=== PATIENT | male | born 1960 | race Two or more races ===

== ENCOUNTER 2017-02-03 15:00 | Inpatient (IN) | payer BC, MEDICAID ==
[~2017-02-03] VITALS: Ht 165.1 cm; Wt 111.0 kg
--- NOTE | ~2017-02-03 | ENPV ---
Carotid Duplex Study Demographics Patient Name FREDDY RAMOS Date of Study 02/03/2017 Patient Number [id number] Gender Male Date of 1960 Age 56 Visit Number [id number] Height Accession Number [id number] Weight Room Number G6338 BSA BMI Referring Yoni Jacobsen MD Physician DO Physician Physician Ordering Physician Yoni Ray DO Hospital Secretary Courtroom Deputy Or Calendar Clerk Lisbet Vargas T Conclusions Summary The right internal carotid artery has mild, 1-39%, plaque and stenosis. The right vertebral artery is present with antegrade flow. The left internal carotid artery has moderate, 40-59%, plaque and stenosis. The left vertebral artery is present with antegrade flow. Procedure Type of Study: Cerebral:Carotid, Carotid Doppler Bilateral. Indications for Study:Pre-Op CABG. Appropriate Use Criteria:9 Patient Status:Routine. Study Location:Inpatient Portable. Technical Quality:Adequate visualization. Velocities are measured in cm/s ; Diameters are measured in cm Carotid Right Measurements Carotid Left Measurements + +--------+--------+ + + + +--------+ --------+ + + !Location !PSV !EDV !Angle !%Stenosis ! !Location !PSV ! EDV !Angle !%Stenosis ! + +--------+--------+ + + + +--------+ --------+ + + !Prox CCA !97 !18 !60 ! ! !Prox CCA !115 ! 25 !58 ! ! + +--------+--------+ + + + +--------+ --------+ + + !Dist CCA !74 !18 !60 ! ! !Dist CCA !109 ! 32 !58 ! ! + +--------+--------+ + + + +--------+ --------+ + + !Prox ICA !71 !18 !58 ! ! !Prox ICA !80 ! 22 !60 ! ! + +--------+--------+ + + + +--------+ --------+ + + !Dist ICA !51 !16 !58 ! ! !Dist ICA !114 ! 39 !60 ! ! + +--------+--------+ + + + +--------+ --------+ + + !Prox ECA !101 ! !60 ! ! !Prox ECA !106 ! !34 ! ! + +--------+--------+ + + + +--------+ --------+ + + !Vertebral !52 ! !60 ! ! !Vertebral !36 ! !58 ! ! + +--------+--------+ + + + +--------+ --------+ + + !Subclavian !158 ! ! ! ! !Subclavian !151 ! ! ! ! + +--------+--------+ + + + +--------+ --------+ + + - There is antegrade vertebral flow noted on the right side. - There is antegrade verte bral flow noted on the left side. - Add'l Measurements:ICAPSV/CCAPSV 0.73.ICAEDV/CCAEDV 1.05. - Add'l Measurements:ICAPS V/CCAPSV 0.99.ICAEDV/CCAEDV 1.56. Signature dtt: TY CARDENAS: 02/03/171939 Physician Self Edit
--- NOTE | ~2017-02-03 | ENPV ---
Vascular Lower Extremity Vein Mapping Procedure Demographics Patient Name FREDDY RAMOS Date of Study 02/03/2017 Patient Number [id number] Gender Male Date of 1960 Age 56 Visit Number [id number] Height Accession Number [id number] Weight Room Number G6338 BSA BMI Referring Yoni Jacobsen MD Physician DO Physician Physician Ordering Physician Yoni Ray DO Senior Actuarial Analyst Nurse Tech Lisbet Vargas RVT Conclusions Summary Both GSV's appear suitable for harvest. Left GSV at mid calf appears to be thickened or not collapse completely. Procedure Type of Study: Veins:Lower Extremity Vein Mapping, Vein Mapping SC. Indications for Study:Pre-op CABG. Appropriate Use Criteria:9 Patient Status:Routine. Study Location:Inpatient Portable. Technical Quality:Adequate visualization. Velocities are measured in cm/s ; Diameters are measured in cm + ++--------++--------+ !Superficial - Great Saphenous Vein !!Right !!Left ! + ++--------++--------+ !Location !!Diameter!!Diameter! + ++--------++--------+ !Sapheno Femoral Junction !!0.49 !!0.44 ! + ++--------++--------+ !GSV High Thigh !!0.4 !!0.43 ! + ++--------++--------+ !GSV Mid Thigh !!0.33 !!0.29 ! + ++--------++--------+ !GSV Low Thigh !!0.29 !!0.34 ! + ++--------++--------+ !GSV Knee !!0.27 !!0.27 ! + ++--------++--------+ !GSV High Calf !!0.22 !!0.22 ! + ++--------++--------+ !GSV Mid Calf !!0.33 !!0.22 ! + ++--------++--------+ !GSV Low Calf !!0.22 !!0.25 ! + ++--------++--------+ Signature dtt: TY CARDENAS dtd: 02/03/172001 Physician Self Edit
--- NOTE | ~2017-02-03 | OR ---
PATIENT'S NAME: FREDDY AMES [facility] AGE: 56 Y [address] ROOM: [address] [place], [place] [address] LOCATION: GPCU ADMIT DATE: 02/03/2017 OR/Procedure Report DISCHARGE DATE: 02/10/2017 FAMILY PHYSICIAN: Physician, Unknown ATTENDING PHYSICIAN: Martinez Vallejo SURGEON: Martinez Vallejo DO TELEPHONE SERVICES SALES REPRESENTATIVE: DATE OF PROCEDURE: 02/04/2017 PREOPERATIVE DIAGNOSIS: Multivessel coronary artery disease. SECONDARY DIAGNOSES: Include: 1. Hypertension. 2. Dyslipidemia. 3. Type 2 diabetes. 4. Gastroesophageal reflux disease. 5. Morbid obesity. 6. Depression. POSTOPERATIVE DIAGNOSES: Include: 1. Hypertension. 2. Dyslipidemia. 3. Type 2 diabetes. 4. Gastroesophageal reflux disease. 5. Morbid obesity. 6. Depression. PROCEDURE: Coronary artery bypass grafting x5 with left internal mammary artery bypass to the LAD, reverse saphenous vein graft to the diagonal, reverse saphenous vein graft to the obtuse marginal, reverse saphenous vein graft to the ramus intermedius, reverse saphenous vein graft to the posterior descending artery. REFERRING PHYSICIAN: Dr. Wong. BRIEF HISTORY: Mr. Ames is a 56-year-old male, who was transferred from [place] for revascularization. He has been brought to the operative suite today after informed consent was obtained. His preoperative catheterization had shown proximal LAD disease, proximal circumflex disease, RCA disease, and ramus intermedius disease and he also had an FFR positive LAD measurement. Given all these, he was brought to the operative suite for revascularization x5. His heart was grossly enlarged with dense epicardial fat with no visible vessels. DESCRIPTION OF PROCEDURE: He was sterilely prepped and draped in usual PATIENT'S NAME: FREDDY AMES [facility] AGE: 56 Y [address] ROOM: [address] [place], [place] [address] LOCATION: GPCU ADMIT DATE: 02/03/2017 OR/Procedure Report DISCHARGE DATE: 02/10/2017 FAMILY PHYSICIAN: Physician, Unknown ATTENDING PHYSICIAN: Martinez Vallejo fashion. A sternal incision was made and the sternum was divided in the midline. Concurrently to this, saphenous vein was harvested endoscopically from the lower extremities. The sternal and marrow edges were made hemostatic with electrocautery and mammary retractor was placed. Left internal mammary artery was identified and harvested in standard fashion with surgical clips and electrocautery. Prior to its division, the patient was fully heparinized. The mammary was divided and prepared for bypass. Mammary retractor was removed. Sternal retractor was placed. Pericardium was opened and pericardial well was created. Cannulation sutures placed in ascending aorta and right atrium for bypass cardioplegia cannulas. The patient was cannulated and connected to the bypass pump without difficulty. Posterior descending artery was identified and opened not to distal from the bifurcation and the vein was anastomosed to this with 7-0 Prolene. It was sized appropriately and connected to the cardioplegia system. Another 500 mL of vein graft and retrograde cardioplegia was given. We then performed distal anastomosis to the obtuse marginal, the ramus intermedius, and the diagonal. Once this was completed, the left internal mammary artery was anastomosed to the left anterior descending artery again in end-to-side fashion with 7-0 Prolene. The mammary bulldogs removed and intact anastomosis was complete. Given his dense layers of epicardial fat, there was some minor oozing from the fat sites. When the crossclamp was removed, these were oversewn with 7-0 Prolene. The cross-clamp was removed and proximal's were formed. This was done with 4-0 punch and 6-0 Prolene. We performed two of the vein graft anastomosis under partial occlusion clamping and remainder were done with 4.3 heartstring and 6- 0 Prolene. Grafts were all de-aired. Distal flow was given. Distal sites were hemostatic. Proximal sites were hemostatic. Two atrial and one ventricular temporary pacemaking wires were placed. Atrial pacing at 80 was initiated for sinus bradycardia and we weaned from bypass without difficulty. The retrograde and venous cannula were removed. Appropriate volume returned from the pump to the patient. The ascending aortic cannula was now removed. Protamine was given. Copious amounts of antibiotic-infused saline was used to irrigate the sternum and mediastinum. Three chest tubes were placed, one left pleural, one posterior pericardial, one anterior mediastinum, and the sternum was approximated with four ZipFix cables. Soft tissues again closed in a layered fashion with 0 Vicryl, 2-0 Vicryl, and 4-0 Monocryl. Prevena dressing was applied and the patient was transferred to the intensive care unit in stable condition. All sponge, instrument, and needle counts were correct. DO STANLEY FLEMING/mindy PATIENT'S NAME: FREDDY AMES [facility] AGE: 56 Y [address] ROOM: [place] [address] [facility] AD[facility] DATE: 02/03/2017 OR/Procedure Report DISCHARGE DATE: 02/10/2017 FAMILY PHYSICIAN: Physician, Unknown ATTENDING PHYSICIAN: Martinez Vallejo /[id number] d: 02/10/172049 t: 02/11/17 0841, OPERATIVE SUMMARY
--- NOTE | ~2017-02-03 | HP ---
PATIENT'S NAME: FREDDY RAMOS [facility] AGE: 56 Y [address] ROOM: [place] [address] [facility] AD[facility] DATE: 02/03/2017 History & Physical DISCHARGE DATE: FAMILY PHYSICIAN: PHYSICIAN, UNKNOWN ATTENDING PHYSICIAN: Julia Babb DATE OF SERVICE: 02/03/2017 CHIEF COMPLAINT: Severe multivessel coronary artery disease. HISTORY OF PRESENT ILLNESS: The patient is a 56-year-old male who was transferred here to [facility] from [place] whereby he was admitted to [place] on Tuesday with complaints of chest pain with associated shortness of breath and radiation to the jaw. Apparently, the chest pain started on Tuesday and he delayed his presentation for approximately a day after the pain began to worsen. Prior to this, the patient has had 1 additional episode of chest pain that was somewhat similar and this was back in October 2016. Upon his arrival to the emergency department in [place], the patient was treated with both GI medications as well as aspirin and nitroglycerin. Shortly thereafter, his pain subsided. He was admitted and underwent a cardiology workup. He does have a history of hypertension, dyslipidemia, and diabetes mellitus type 2. The patient had an echocardiogram with findings of a normal EF in the 60% range and no valvular abnormalities. On February 01, 2017, he underwent cardiac catheterization with findings of no left main disease, his 1st diagonal was noted to be at 90% occlusion, his proximal LAD at 50% occlusion, the circumflex at 70%, the proximal RCA a 90% occlusion, as well as a mid RCA at 100%, the ramus is noted to be at 70% occlusion. The patient was recommended to undergo surgical revascularization. Initially, he had refused treatment, but then he did consent to transfer to [place] for surgery under the care of Dr. Babb. Dr. Wong did transfer the patient today and he arrived in stable condition with no complaints of chest pain or shortness of breath. PAST MEDICAL HISTORY: Illnesses: Hypertension, dyslipidemia, diabetes mellitus type 2, GERD, obesity, and depression. Surgeries/Procedures: None. ALLERGIES: PENICILLIN. PATIENT'S NAME: FREDDY RAMOS [facility] AGE: 56 Y [address] ROOM: [place] [address] LOCATION: GPCU ADMIT DATE: 02/03/2017 History & Physical DISCHARGE DATE: FAMILY PHYSICIAN: PHYSICIAN, UNKNOWN ATTENDING PHYSICIAN: Julia Babb SOCIAL HISTORY: The patient is . He and his live in [place]. 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 There is no use of alcohol or history of smoking. FAMILY HISTORY: His mother had history of diabetes. His father's history is unknown. As far as we can tell, there is no history of coronary artery disease in the immediate family. HOME MEDICATIONS: 1. Lipitor 40 mg daily. 2. Celebrex 200-400 mg a day p.r.n. pain. 3. Amaryl 4 mg daily. 4. Metformin 500 mg once a day; however, the prescribed instructions are for 1000 mg b.i.d. 5. Tramadol 50-100 mg daily p.r.n. pain. 6. Diovan 160 mg daily. SYSTEM REVIEW: The [employer] Basket Assembler System was used to obtain information. The patient is non-Bahraini speaking, Occitan only, he is severely hard of hearing. Pertinent positives are noted in the HPI. PHYSICAL EXAMINATION: VITAL SIGNS: Blood pressure 139/81, pulse is 85, respirations 24, temperature 99.3, and O2 saturations 95% on room air. Height is 165.1 cm. Weight is 104.4 kg. GENERAL: The patient is pleasant. In no acute distress. He appears his stated age. HEENT: Normocephalic with EOMIs intact. Conjunctivae clear. LUNGS: Clear to auscultation to the anterior. CARDIOVASCULAR: Regular rate and rhythm. CHEST: He does have a few follicular spots on the right upper chest, nothing infectious in nature. ABDOMEN: Obese, soft, nontender by 4 quadrants with positive bowel sounds throughout. MUSCULOSKELETAL: Good range of motion to bilateral upper and lower extremities. NEUROLOGIC: Alert and oriented with language barrier and significantly hard of hearing. LABORATORY AND TEST RESULTS: Creatinine is 0.9. Cardiac catheterization and echo as per HPI. PATIENT'S NAME: FREDDY RAMOS [facility] AGE: 56 Y [address] [place]OM: [facility] [address] [place], [place] [address] LOCATION: GPCU ADMIT DATE: 02/03/2017 History & Physical DISCHARGE DATE: FAMILY PHYSICIAN: PHYSICIAN, UNKNOWN ATTENDING PHYSICIAN: Julia Babb IMPRESSION AND PLAN: Dr. Babb spoke to the patient and his via the [employer] System with regard to surgical revascularization. Per the review of the catheterization studies, the patient will need 5-vessel bypass, this is consisting of an obtuse marginal, left anterior descending artery, ramus, diagonal, and posterior descending artery. Risks and benefits were discussed. Discussion of the risks includes, but were not limited to, bleeding, requiring transfusion, return to the operative suite, myocardial infarction, cerebrovascular accident, renal and/or pulmonary failure. Also discussed were arrhythmia and infection as well as postoperative mortality. The patient does consent to proceed with surgery. Length of stay and restrictions were discussed. Surgery will be first thing in the morning with the patient leaving the room at approximately 5:30 a.m. The patient did have the opportunity to ask questions, as did his . The patient's questions were asked and answered to their satisfaction. We will plan for coronary artery bypass grafting in the morning. SOPHIA CAPUTO APRN FOR JULIA BABB, DLQ/modl /[id number] D: 826 T: HISTORY & PHYSICAL
--- NOTE | ~2017-02-03 | OR ---
PATIENT'S NAME: ADIEL AMES [facility] AGE: 56 Y [address] ROOM: [address] [place], [place] [address] LOCATION: GPCU ADMIT DATE: 02/03/2017 OR/Procedure Report DISCHARGE DATE: FAMILY PHYSICIAN: PHYSICIAN, UNKNOWN ATTENDING PHYSICIAN: Martinez Vallejo SURGEON: David Acosta MD BLANKET INSPECTOR: DATE OF PROCEDURE: 02/04/2017 PROCEDURE PERFORMED: The following lines were placed during the patient's coronary artery bypass grafting. INDICATIONS FOR PROCEDURE: Adiel Ames is a 56-year-old, gentleman who was referred to us for a three-vessel heart disease. His past medical history is significant for type 2 diabetes, hypertension, and obesity, would add sleep apnea to that as well. However, I do not believe it has been diagnosed officially. Detailed discussion of the risks and benefits was undertaken last night by Dr. Thompson via the conference interpreter as the patient speaks no [place] Citizen. I visited with him using the [employer] interpreting system this morning and explained him what the plan was. He agreed with the plan as stated. DESCRIPTION OF PROCEDURE: We proceeded to OR #4 where he underwent uneventful induction of general anesthesia and intubation with the airway controlled. Procedure #[address] in the OR. Procedure #1 was the placement of arterial line which I will narrate now. The patient's right arm was selected because the pulse was significantly better than the left. He had already been catheterized previously so I selected a spot approximately 5 cm proximal to the cath point. It should also be noted it has been several days since he was cathed. I prepped the area with chlorhexidine topicalized with 1% lidocaine. I inserted a 20-gauge Arrow arterial line kit through the numbed area contacting bright red arterial blood on the first pass. The wire threaded without difficulty and the catheter was then threaded off the wire into the artery. Good arterial waveform was noted on transduction. The entire assembly was covered with Tegaderm and affixed to the patient's wrist. Procedure #2; placement of central line. With the patient in the operating room, and the airway controlled, the patient was placed in Trendelenburg position and the path of the internal jugular vein was marked on the neck. I washed hands with chlorhexidine and gloved and gowned, while his neck was prepped and maximal sterile barrier was placed. An 18-gauge needle was then inserted through the marked area. Contacting dark venous blood on the first pass. The wire threaded without difficulty or ectopy. A small skin riley was PATIENT'S NAME: ADIEL AMES [facility] AGE: 56 Y [address] ROOM: [place] [address] LOCATION: GPCU ADMIT DATE: 02/03/2017 OR/Procedure Report DISCHARGE DATE: FAMILY PHYSICIAN: PHYSICIAN, UNKNOWN ATTENDING PHYSICIAN: Martinez Vallejo made and then a dilator was passed and a 9-Fijian, 10 cm introducer was inserted over the wire to its hub. The wire was withdrawn and an SLIC catheter was placed in the obturator lumen and locked in place. All lumens flushed and carleen freely. CVP was 9 on transduction. At that point, the entire assemblage was covered with sterile Tegaderm. This line was used for the duration of the case. The patient's head was then returned to the midline. His stomach was suctioned with an 18-Fijian orogastric tube. The orogastric tube was removed and the ANTOLIN probe placed in the posterior pharynx and guided into the esophagus. This occurred without problems. Pictures obtained were of good quality and adequate for interpretation. FINDINGS: Findings Pre-bypass: Moderate left ventricular hypertrophy with preserved ejection fraction. No focal wall-motion abnormalities were noted. The right ventricle appears to be normal in size and function. Valvular exam reveals trace of mitral regurgitation with normal morphology without evidence of stenosis or regurgitation. Tricuspid valve; there was a trace of regurgitation structurally. No problems. Aortic valve, trileaflet. No evidence of regurgitation or stenosis. The aorta itself appears to be remarkably free of plaquing. There was some intimal thickening present. No plaques extending more than 1 mm were noted. Findings Post-bypass: Interval change in contractility due to the presence of pacemaker, slightly asymmetrical contractions consistent with pacing were noted. Examination of the mitral valve revealed interval worsening of mitral regurgitation from trace to 1+. The other valvular exam and the exam of the aorta were unchanged. Thank you very much for allowing me to participate in Mr. Ames's care. If you have any questions regarding the ANTOLIN or placement of lines, please do not hesitate to call. DAVID MD LOU [place]/mindy /[id number] d: 02/04/17 2117 t: 02/08/17 1130, OPERATIVE SUMMARY
--- NOTE | ~2017-02-03 | DS ---
PATIENT'S NAME: FREDDY RAMOS [facility] AGE: 56 Y [address] ROOM: [address] [place], [place] [address] LOCATION: GPCU ADMIT DATE: 02/03/2017 Discharge Summary DISCHARGE DATE: 02/10/2017 FAMILY PHYSICIAN: Physician, Unknown ATTENDING PHYSICIAN: Martinez Babb HISTORY OF PRESENT ILLNESS AND HOSPITAL COURSE: The patient is a 56-year-old, male, who [facility] non[facility] with findings of multi-vessel coronary artery disease. The patient requested transfer to a facility close to home for surgical revascularization, he was therefore transferred here to [place] under the care of Dr. Babb. We discussed the details of surgical revascularization using the [employer] interpretation system. The patient did consent to surgery and on 02/04/2017, he underwent coronary artery bypass grafting x5 vessels with the left internal mammary artery bypass to the LAD, reverse saphenous vein graft to the diagonal, reverse saphenous vein graft to the obtuse marginal, reverse saphenous vein graft to the ramus intermedius, and reverse saphenous vein graft to the posterior descending artery. The patient tolerated the surgery without complication. He transferred up to the ICU postoperatively. He was extubated without complication on the first operative day. On postoperative day #1, he was found stable to transfer to the progressive care floor, and therefore, his lines and drips were discontinued. The patient worked with cardiac rehabilitation for strengthening purposes. His chest tubes, pacemaking wires, and Hunter catheter were discontinued in the routine postoperative time frame. The patient had no postoperative atrial fibrillation. He had no wound healing complications. The patient and family worked with Care Management for and desires for postoperative care. The patient or his desired Home Health Care Services or any prison. The patient was found stable to discharge on 02/09/2017. DISCHARGE INSTRUCTIONS: Discharge orders include an ADA diet. Activity levels as per the Open Heart Surgery Discharge Summary sheet. The patient is to see Dr. Wong in 2 weeks as well as Dr. Babb in 2 weeks. He is to follow strict sternal precautions until 03/18/2017. He is to work with cardiac rehabilitation for outpatient therapy. DISCHARGE DIAGNOSES: Include: 1. Oze-DD-vhspwerzl myocardial infarction. 2. Multi-vessel coronary artery disease. 3. Diabetes mellitus, type 2. 4. Hypertension. 5. Dyslipidemia. 6. Gastroesophageal reflux disease. 7. Obesity. 8. Depression. PATIENT'S NAME: FREDDY RAMOS [facility] AGE: 56 Y [address] ROOM: [address] [place], [place] [address] LOCATION: GPCU ADMIT DATE: 02/03/2017 Discharge Summary DISCHARGE DATE: 02/10/2017 FAMILY PHYSICIAN: Physician, Unknown ATTENDING PHYSICIAN: Martinez Babb 9. Preoperative urinary tract infection. DISCHARGE MEDICATIONS: Include: 1. Lipitor 40 mg daily. 2. Amaryl 4 mg daily. 3. Glucophage 850 mg twice a day. 4. Valsartan 160 mg daily. 5. Amiodarone 200 mg twice a day. 6. Aspirin 81 mg daily. 7. Carvedilol 3.125 mg twice a day. 8. Colace 100 mg twice a day. 9. Lasix 40 mg daily. 10. Guaifenesin 600 mg twice a day. 11. Levaquin 500 mg daily until gone. 12. Polyethylene glycol 17 g daily. 13. Potassium chloride 20 mEq twice a day. 14. [place] 5/325, 1 to 2 every 4 to 6 hours as needed. DISPOSITION: The patient and verbalized understanding of the discharge orders. We worked with [facility] for discharge instructions. The patient was discharged to home in stable condition. SOPHIA CAPUTO APRN FOR MARTINEZ BABB, DO CASTILLO/kiml /[id number] d: 02/25/17 1442 t: 02/28/17 1039, DISCHARGE SUMMARY
[2017-02-03] MEDS ORDERED: ULTRAM50 MG PO (16:46)
[2017-02-03] MEDS ORDERED: LIPITOR40 MG PO (16:46)
[2017-02-03] MEDS ORDERED: CELEBREX200 MG PO (16:47)
[2017-02-03] MEDS ORDERED: AMARYL4 MG PO (16:47)
[2017-02-03] MEDS ORDERED: GLUCOPHAGE500 MG PO (16:48)
[2017-02-03] MEDS ORDERED: DIOVAN160 MG PO (16:49)
--- NOTE | 2017-02-03 17:01 | NUR ---
Pt is 56 y/o male admit for CAD>CABG consult for . Pt alert and oriented x3. Extremely [place]. Does not wear hearing aids. Does not speak Slovak. Hotel Superintendent Liz used for admission. Allergy to PCN. Red and yellow bracelets on. Hx htn,hyperlipids,gerd,DM,ED,hip pain,obesity. He states his chest discomfort started on Tuesday. He went to [facility] ED on Tuesday am. According to H&P sent, his pain was mid sternal and radiated up into his jaw. He is not currently working because of an injury at work. Denies N/V or sweating with his chest pain. Pt transfered here via ambulance from [facility] for a CABG consult with . Plan for CABG in the am.
[2017-02-03 17:29] LABS: BASOPHIL % 0.3 %; EOSINOPHIL % 0.3 %; HEMATOCRIT 43.2 % (37.0-53.0); HEMOGLOBIN 14.7 g/dL (12.0-17.0); IMMATURE GRANULOCYTE # 0.1 K/uL (0.0-0.3); IMMATURE GRANULOCYTE % 0.6 %; LYMPHOCYTE # 2.4 K/uL (0.8-4.0); LYMPHOCYTE % 22.2 %; MCH 28.4 pg (27.0-34.0); MCV 83.4 fl (83.0-98.0); MONOCYTE # 0.6 K/uL (0.0-1.0); MONOCYTE % 5.7 %; MPV 9.5 fl (9.4-12.4); NEUTROPHIL # (ANC) 7.8 K/uL (1.4-9.0); NEUTROPHIL % 70.9 %; NRBC % 0 /100WBC (0-0.00); PLATELET COUNT 269 K/uL (150-450); RBC 5.18 M/uL (4.00-6.00); RDW-CV 12.9 % (11.9-14.6)
[2017-02-03 17:35] LABS: INR - (THERAPEUTIC) 1.06 (0.92-1.07); PROTIME 11.1 SECONDS (9.8-11.4)
[2017-02-03 17:47] LABS: ALBUMIN 3.6 gm/dL (3.5-5.0); ALK PHOS 103 IU/L (33-138); ALT 33 IU/L (12-78); ANION GAP 13.8 (10.0-19.0); AST 25 IU/L (10-40); BLOOD UREA NITROGEN 14 mg/dL (6-24); CALCIUM 8.8 mg/dL (8.5-10.5); CHLORIDE 106 mMol/L (96-110); CO2 24 mMol/L (22-32); CREATININE 0.8 mg/dL (0.6-1.3); ESTIMATED GFR (MDRD EQUATION) > 60; POTASSIUM 3.8 mMol/L (3.7-5.1); SODIUM 140 mMol/L (135-145); TOTAL BILIRUBIN 0.9 mg/dL (0.0-1.5); TOTAL PROTEIN 8.1 g/dL (6.0-8.4)
--- NOTE | 2017-02-03 18:50 | NUR ---
02/03/17 @ 1730: ACCU-CHECK 107
[2017-02-03 19:11] LABS: BILIRUBIN URINE NEGATIVE (NEGATIVE); BLOOD URINE NEGATIVE /UL (NEGATIVE); COLOR URINE YELLOW (YELLOW); GLUCOSE URINE NEGATIVE (NEGATIVE); KETONE URINE 5 mg/dL (NEGATIVE); LEUKOCYTES URINE 25 /UL (NEGATIVE); NITRITE URINE NEGATIVE (NEGATIVE); PROTEIN URINE NEGATIVE (NEGATIVE); TURBIDITY URINE CLEAR (CLEAR); UROBILINOGEN URINE 4 mg/dL (NORMAL)
[2017-02-03 19:45] LABS: BACTERIA URINE NEGATIVE (NEGATIVE); EPITHELIAL URINE 0-2 #/HPF (NEGATIVE); RBC URINE 0-2 #/HPF (NEGATIVE); WBC URINE 0-2 #/HPF (NEGATIVE)
[2017-02-03 20:32] LABS: BICARBONATE 26.4 mmol/L (18.0-23.0); PCO2 38 mmHg (35-45); PO2 77 mmHg (80-90)
--- NOTE | 2017-02-04 04:10 | NUR ---
Significant Event: VSS, PT AFEBRILE. CONTINUES ON RA WITH SATS IN THE MID TO UPPE 90'S. WAS OBSERVED DURING AM ASSESSMENT THAT PT HAS ABOUT 40-45 SECOND PERIODS OF APNEA WHILE SLEEPING. PT HAS NO CO PAIN. CABG PREP WORK DONE, PT IS FIRST CASE. NPO SINCE MIDNIGHT. HEPARIN OFF AT 0200. BICARB STARTED AT 0000. AT BEDSIDE. USING [employer] FOR INTERPRETING. Follow up:
--- NOTE | 2017-02-04 09:58 | NUR ---
[facility]abetes Center note: 0900 Reviewed patient chart, noting that A1C was 8 % upon admission to hospital. Today patient is having CABG procedure and is not in his room, will continue to follow throughout hospital stay to assess educational needs and make recommendations to improve glycemic control.
[2017-02-04 13:18] LABS: HEMOGLOBIN 8.2 g/dL (12.0-17.0); MCV 84.2 fl (83.0-98.0); MPV 9.5 fl (9.4-12.4); RDW-CV 12.6 % (11.9-14.6)
[2017-02-04 13:19] LABS: HEMATOCRIT 23.5 % (37.0-53.0); MCH 29.4 pg (27.0-34.0); MCHC 34.9 gm/dL (32.0-36.5); RBC 2.79 M/uL (4.00-6.00)
[2017-02-04 13:20] LABS: PLATELET COUNT 135 K/uL (150-450)
[2017-02-04 13:30] LABS: PROTIME 13.8 SECONDS (9.8-11.4); PTT 29 SECONDS (25-32)
[2017-02-04 13:31] LABS: INR - (THERAPEUTIC) 1.31 (0.92-1.07)
[2017-02-04 14:06] LABS: ALPHA ANGLE 76 degrees; ALPHA ANGLE 77 degrees (70-81); CLOT FORMATION TIME 70 seconds; CLOTTING TIME 163 seconds; CLOTTING TIME 76 seconds (43-82); MAXIMUM CLOT FIRMNESS 62 mm; MAXIMUM CLOT FIRMNESS 63 mm (51-72); MAXIMUM LYSIS 0 %
[2017-02-04 14:16] LABS: BICARBONATE 26.6 mmol/L (18.0-23.0); PCO2 44 mmHg (35-45); PO2 103 mmHg (80-90)
[2017-02-04 14:29] LABS: ANION GAP 13.8 (10.0-19.0); BLOOD UREA NITROGEN 13 mg/dL (6-24); CALCIUM 7.7 mg/dL (8.5-10.5); CHLORIDE 108 mMol/L (96-110); CO2 24 mMol/L (22-32); CREATININE 0.7 mg/dL (0.6-1.3); ESTIMATED GFR (MDRD EQUATION) > 60; SODIUM 142 mMol/L (135-145)
[2017-02-04 14:30] LABS: BICARBONATE 26.4 mmol/L (18.0-23.0); PCO2 39 mmHg (35-45); PO2 344 mmHg (80-90); POTASSIUM 3.7 mEq/L (3.7-5.1); SODIUM 138 mEq/L (135-145)
[2017-02-04 14:32] LABS: PCO2 46 mmHg (35-45); PO2 258 mmHg (80-90)
[2017-02-04 14:33] LABS: POTASSIUM 4.7 mEq/L (3.7-5.1); SODIUM 137 mEq/L (135-145)
[2017-02-04 14:34] LABS: BICARBONATE 27.4 mmol/L (18.0-23.0); PCO2 50 mmHg (35-45); PO2 222 mmHg (80-90); POTASSIUM 4.6 mEq/L (3.7-5.1); SODIUM 137 mEq/L (135-145)
[2017-02-04 14:34] LABS: POTASSIUM 3.8 mMol/L (3.7-5.1)
[2017-02-04 14:34] LABS: PCO2 42 mmHg (35-45); PO2 305 mmHg (80-90)
[2017-02-04 14:35] LABS: BICARBONATE 26.5 mmol/L (18.0-23.0); POTASSIUM 3.6 mEq/L (3.7-5.1); SODIUM 137 mEq/L (135-145)
--- NOTE | 2017-02-04 17:28 | NUR ---
Significant Event: Patient back from OR at 1355. Patient extubated at 1524. Up to chair at 1535. Patient did stand pretty well with 2 max assist. Currently on 3L of oxygen. Received a total of 3-500ml albumin post operatively. Patient is AV paced set at 80bpm. Patient went asystole when pacemaker was disconnected temporarily on accident. MD notified. Levophed gtt currently at 0.1mcg/kg/min. Amiodarone currently at 1mg/min, Bicarb at 50ml/hr. Insulin gtt at 5.5units/hr. Cardiac index/outputs have been fine throughout the shift. Drinking PO well. Hunter catheter draining yellow clear urine. Replaced KCL with 40meq potassium this shift, also replaced calcium x1 of 1000mg. Follow up:
[2017-02-05 04:45] LABS: BICARBONATE 27.9 mmol/L (18.0-23.0); PCO2 42 mmHg (35-45); PO2 72 mmHg (80-90)
[2017-02-05 05:01] LABS: BLOOD UREA NITROGEN 7 mg/dL (6-24); CALCIUM 7.5 mg/dL (8.5-10.5); CHLORIDE 107 mMol/L (96-110); CO2 25 mMol/L (22-32); CREATININE 0.7 mg/dL (0.6-1.3); ESTIMATED GFR (MDRD EQUATION) > 60; SODIUM 142 mMol/L (135-145)
[2017-02-05 05:09] LABS: HEMOGLOBIN 10.2 g/dL (12.0-17.0); MCHC 34.8 gm/dL (32.0-36.5); MPV 10.2 fl (9.4-12.4); WBC 10.6 K/uL (4.0-11.0)
[2017-02-05 05:12] LABS: HEMATOCRIT 29.3 % (37.0-53.0); MCH 29.2 pg (27.0-34.0); RBC 3.49 M/uL (4.00-6.00)
--- NOTE | 2017-02-05 05:51 | NUR ---
Significant Event: PATIENT ALERT AND ORIENTED, DOES SPEAK SOME GHANAIAN. TITRATED OFF OF LEVOPHED GTT AT 0430. CONTINUES TO BE A/V PACED. CHEST TUBE X3. REPLACING 2 GRAM CALCIUM CHLORIDE AND 40MEQ POTASSIUM CHLORIDE PER SLIDING SCALE. CONTINUES ON 2L PER NASAL CANNULA. MAGDALENO WITH GOOD UOP. NO BM, APPETITE IMPROVING. NAUSEATED WITH STANDING TO CHAIR THIS AM, PRN ZOFRAN GIVEN. PRN NORCO GIVEN LAST AT 0530. CONTINUES ON INSULIN GTT. RIGHT RADIAL ARTLINE. RIGHT IJ MAC. PIV X2. CONTINUES ON AMIO GTT. AT BEDSIDE Follow up: PCU STATUS?
--- NOTE | 2017-02-05 09:06 | NUR ---
CONSULT RECEIVED PER CABG ORDERS. WILL PROVIDE DIET ED APPROPRIATE PRIOR TO DC.
--- NOTE | 2017-02-05 16:46 | NUR ---
Significant Event: PATIENT NOW PCU STATUS. A/O X3, PLEASANT ET COOPERATIVE. DC'D R)IJ ET ART LINE. AMIODARONE CHANGED TO PO. C/O CONSTIPATION, PRN MOM GIVEN. UP TO CHAIR ET BEDSIDE COMMODE 1 ASSIST, STERNAL PRECAUTIONS. EXTERNAL PACER TURNED OFF PER DR BABB. CHEST TUBE SRAINED 350CC SEROSANG. PRN NORCO GIVEN X2. WEANED OFF O2, SATS > 90% Follow up:TRANSFER TO FLOOR
--- NOTE | 2017-02-06 05:21 | NUR ---
pt on 1 liter per nc. Up to chair tonoc. 2 norco q 4h for pain control, along with morphine x 2. good appetite tonoc. chest tubes x 3. epiwires intact. Insulin gtt off since 99 for low blood sugars.
--- NOTE | 2017-02-06 19:24 | NUR ---
1435: PATIENT TRANSFERRED FROM ICU. VSS. . DENIES PAIN AT THIS TIME. STERNUM VENU, BILATERAL HARVEST SITES-WNL. HEART HUGGER IN PLACE. PATIENT IS MONGOLIAN SPEAKING. BRITTANY IN ROOM FOR INTERPRETION. AT BEDSIDE ASSISTIVE WITH CARES.
--- NOTE | 2017-02-07 04:08 | NUR ---
Signficant Event: Patient A/Ox3. VSS on 1L. Patient is Ukrainian speaking only. BRITTANY in room. Sternal incision open to air, edges approximated. MARKOS bulb with 30ml output. Groin sites covered with gauze and tegaderm. knee graft sites sutured and open to air. [place] given x1 for sternal incision pain. Up 1-2 assist with gait belt. Does well with sternal precautions. in room to help. Follow up: Continue plan of care
--- NOTE | 2017-02-07 11:57 | NUR ---
Diabetes center note: Darien Wells, who is present in the room at the time of CDE visit interpreted for patient, due to patient and spouse non bahamian speaking. A1C was 8 % at time of admission, was on oral meds Amaryl 4 mg and Metformin 500 mg at home. CABG on 02/04/17 and current still has a chest tube, anticipate discharge in 2-3 days. Primary care nurse does not know at this time whether patient will need medication changes regarding diabetes. Patient states he thinks that the reason his blood sugars are elevated is due to the way he eats, will submit RD consult to educate on meal planning. FBS this a.m. was 105. Discussed importance of having proper control of blood sugars to reduce risks of infection and promote wound healing, as well as reducing risks of complications related to heart, eyes, nerves and kidneys. Provided Diabetes management booklet and Diabetes Survival Skills Assessment form, encouraged support people in room to assist in completing, present are the senior strategy analyst and his son, they state that this patient and family, are "like a part of their family" Willing to assist in any way
--- NOTE | 2017-02-07 18:26 | NUR ---
PATIENT HAS BEEN UP AND DOWN TO THE BATHROOM TODAY MILK OF MAGNESIA GIVEN FOR BOWEL, PATIENT ALSO ASKED FOR PRUNE JUICE.
--- NOTE | 2017-02-08 04:17 | NUR ---
Significant Event: Patient A/Ox3. VSS on RA. Up 1-assist to bathroom, slightly unsteady on his feet. Reminders to follow sternal precautions. Patient given [place] x2 for sternal incision pain. Follow up: Continue plan of care
--- NOTE | 2017-02-08 11:06 | NUR ---
Diabetes Center note: 0900 Reviewed chart this a.m., FBS 98 mg/dl. Patient is up walking in the hallway nurse identifies need for Dietitian to reveiw carb counting and appropriate menu choices. Patient did complete the Diabetes Assessment form and discussed items which he had questions about. Patient was taking Glimepiride 4 mg at home and also is on moderate sliding scale Novolog here. At this time it unsure what medication for diabetes he will be taking at home. A1C 8 %, discussed rational for obtaining better control of blood sugars. Patient does have a meter at home to check blood sugars. Will continue to trend blood sugars and address any other educational needs.
--- NOTE | 2017-02-08 14:36 | NUR ---
Significant Event:A/O X 3. NSR. HR'S 70'S, SBP 120'S. 1+ 2+ Edema in Lower extremities. Lungs clear dim, O2 remains > 90% on RA. Uses flutter valve and spirometer to 1250 ml. Tolerating PO fluid restriction and cardiac diet. Diabetic questionairre completed and seen by Diabetic Tow Truck Operator, Dr Vallejo does not plan to send patient home on insulin. blood sugars in 90's-100's. BM today. Walter drain removed. Upper abdomen dressing intact. Sternal incision open to air and leaks a scant amount of serosang drainage on the inferior end. Sutures to L) leg harvest sites. Ambulates in the ewing with SBA, waddles dramatically because he doesnt want to bend his knees. 2 [place] last at 0700. is attentive at the bedside and is updated. NO plan for patient to go home on insulin, but will go home tomorrow. Follow up:Start on Glucophage.
--- NOTE | 2017-02-08 14:39 | NUR ---
Introduced self and role of care management to pt and thru the language line. They live in [place] and is currently not working. THe plan is for him to go home. They live in a 2 story home but he can stay on the main level. He has a shower bath and believes the toliet is high enough to get on and off of. I explaind the main concerns is the sternal precautions and he is aware along with . They may want grab bars but I explained they will need to do this on there own. I can give them a script for walker and shower bench if needed. At this time they deny any other concerns and he states he is up and walking without an issue.
--- NOTE | 2017-02-08 17:22 | NUR ---
A - PT SCREENED D/T LOS AND CONSULT FOR DIABETIC DIET ED AND HEART HEALTHY DIET ED PER CABG PROTOCOL. [place] SPEAKING, MINIMAL ALBANIAN. S/P CABG. LABS: MG 2.7, A1C 8.0%. MEDS: MOD SSI, GLUCOPHAGE, LASIX. DIET: CONSISTENT CARB W/ 2000ML FLUID RESTRICTION. INTAKE 75-100%, MOSTLY 100%. DIABETIC/HEART HEALTHY DIET ED GIVEN VIA PHONE W/ MACHINE II ENGRAVER. PT GOT DISTRACTED EASILY, DOES NOT GET WHAT MACHINE II ENGRAVER WAS SAYING. PER PT, HE WILL PREPARE HIS OWN MEALS HE DOES NOT TRUST HIS 'S COOKING. INTRODUCED CARB COUNTING AND ENCOURAGED PORTION CONTROL. ENCOURAGED LOW SODIUM AND LOW FAT DIET WELL. PT SEEMS TO GET IT. LEFT DIET EDUCATION MATERIAL IN [place] AND CONTACT INFORMATION WITH PT. EST NEEDS: [id number] KCAL (25-30 KCAL/KG IBW), 62-74 GRAMS PROTEIN (1-1.2 GRAMS/KG IBW), FLUID NEEDS: PER MD. D - NO NUTRITION DIAGNOSIS. M/E - GOAL: PT WILL CONTINUE TO CONSUME >75% OF MEALS IN 5-7 DAYS.
[2017-02-09 02:52] LABS: BASOPHIL % 0.3 %; EOSINOPHIL # 0.2 K/uL (0.0-0.5); EOSINOPHIL % 2.1 %; HEMATOCRIT 29.4 % (37.0-53.0); HEMOGLOBIN 9.5 g/dL (12.0-17.0); IMMATURE GRANULOCYTE # 0.1 K/uL (0.0-0.3); LYMPHOCYTE # 2.7 K/uL (0.8-4.0); LYMPHOCYTE % 28.9 %; MCH 28.1 pg (27.0-34.0); MCHC 32.3 gm/dL (32.0-36.5); MONOCYTE # 0.9 K/uL (0.0-1.0); MONOCYTE % 10.1 %; MPV 9.4 fl (9.4-12.4); NEUTROPHIL # (ANC) 5.4 K/uL (1.4-9.0); NEUTROPHIL % 57.6 %; NRBC % 0 /100WBC (0-0.00); RBC 3.38 M/uL (4.00-6.00); RDW-CV 13.3 % (11.9-14.6); WBC 9.3 K/uL (4.0-11.0)
[2017-02-09 03:03] LABS: PLATELET COUNT 232 K/uL (150-450)
[2017-02-09 03:17] LABS: ALBUMIN 2.8 gm/dL (3.5-5.0); ALK PHOS 67 IU/L (33-138); ALT 20 IU/L (12-78); ANION GAP 13.2 (10.0-19.0); AST 19 IU/L (10-40); BLOOD UREA NITROGEN 16 mg/dL (6-24); CHLORIDE 106 mMol/L (96-110); CO2 26 mMol/L (22-32); CREATININE 0.9 mg/dL (0.6-1.3); ESTIMATED GFR (MDRD EQUATION) > 60; MAGNESIUM 2.4 mg/dL (1.8-2.6); POTASSIUM 4.2 mMol/L (3.7-5.1); SODIUM 141 mMol/L (135-145); TOTAL BILIRUBIN 0.9 mg/dL (0.0-1.5); TOTAL PROTEIN 6.7 g/dL (6.0-8.4)
--- NOTE | 2017-02-09 04:47 | NUR ---
Significant Event: A/0X3. ALBANIAN SPEAKING BUT KNOWS SOME MALAY. IN ROOM WITH PATIENT AND HELPS WITH CARES. HEART HUGGER ON. NEEDS FREQUENT REMINDERS TO FOLLOW STERNAL PRECAUTIONS WHEN GETTING UP. SBA UP TO BR. TURNS SELF. SLIGHT TEMP OF 99.1 THE BEGINNING OF SHIFT BUT AFEBRILE SINCE. VSS ON RA. NORCO GIVEN X1. LAST DOSE WAS AT 2101. PATIENT WAS ABLE TO FIND RELIEF AND NO C/O OF PAIN THE REST OF THE SHIFT. IV TO R) HAND AND L) FA SL. VOIDS FINE PER THE URINAL. NO BM THIS SHIFT. PATIENT HAD 6 BEATS OF V.TACH AROUND 0153. PATIENT WAS SLEEPING AND WAS NON SYMPTOMATIC. MG- 2.4 AND K 4.2. DOCTOR HOLLEY AWARE. CONTINUE TO MONITOR. D/C HOME TODAY? Follow up: CONTINUE WITH PLAN OF CARE.
--- NOTE | 2017-02-09 08:06 | NUR ---
Diabetes consult: Education completed by CDE yesterday. Patient's blood sugars well controlled with amaryl and glucophage. Patient potentially home today.
[2017-02-09] MEDS ORDERED: CORDARONE,PACE200 MG PO (10:07)
[2017-02-09] MEDS ORDERED: ASPIRIN EC81 MG PO (10:08)
[2017-02-09] MEDS ORDERED: COREG 3.1253.125 MG PO (10:10)
[2017-02-09] MEDS ORDERED: COLACE100 MG PO (10:12)
[2017-02-09] MEDS ORDERED: LASIX40 MG PO (10:17)
[2017-02-09] MEDS ORDERED: HUMIBID LA (MU600 MG PO (10:19)
[2017-02-09] MEDS ORDERED: LEVAQUIN500 MG PO (10:20)
[2017-02-09] MEDS ORDERED: MIRALAX17 GM PO (10:25)
[2017-02-09] MEDS ORDERED: K-TAB ER20 MEQ PO (10:28)
[2017-02-09] MEDS ORDERED: NORCO 5-325 TA1 EACH PO (10:29)
--- NOTE | 2017-02-09 15:28 | NUR ---
I got a call from nursing stating pt does not have a ride home. I did call [employer] to get it set up and did for 4pm. I then went to talk with pt and with the Liz along with Sweta Gaming. I explained the doctor did the discharge orders and he can go home today. He stated the doctor told him he could go home tomorrow when asked because he was not ready and it was raining and his incision. I explained the rain will not hurt it and he will have clothes on and my understanding was the ride. I explained if that is the case I did get him a ride set up. HE states no that the md told him he could go tomorrow. I explained everything per nursing and md looks good and he can go. Sweta then called Rosie Dumont and explained that she stated he could stay. She stated that would be ok but needs to make sure he will have a ride, I discussed with the pt and he will have a ride and will be here at 1000am. I asked about any other concerns and he and deny. I did tell them tomorrow he will get scripts and he will need to go get them filled at his local pharmacy and he agreed. I did updated Erickson GAMING and called Rosie Dumont APRN as well. WIll continue to follow.
--- NOTE | 2017-02-09 16:44 | NUR ---
Significant Event: VSS AND RA. AFEBRILE. 1 TAB NORCO X1 FOR SURGICAL PAIN. UP AND AMBULATES X2 IN THE HALLS AND IN HIS ROOM, UP TO THE SHOWER WELL. REPOSITIONS SELF FREQUENTLY. SPOUSE AT BEDSIDE. INTERPRETATION DONE PER MACHINE FORMER AND THE MARTII. PLAN FOR HOME IN THE AM WITH FAMILY. Follow up: CONTINUE PLAN OF CARE; D/C TMRW.
--- NOTE | 2017-02-10 04:39 | NUR ---
Significant Event: Patient A/Ox3. VSS on RA. Patient is up SBA with family assistance. No complaints of pain this shift. Patient has slept well this shift. Follow up: Discharge to home at 1000.
--- NOTE | 2017-02-10 11:32 | NUR ---
CABG DIET ED COMPLETED WITH PT AND PT'S VIA [employer]PER[employer]OR [employer]ATION WORKROOM. PT FOLLOWS A DIABETIC DIET AT HOME; DIABETES BOOKLET GIVEN TO PT TO TAKE HOME TO REVIEW. ENCOURAGED TO SET UP AN OUTPT RD APPOINTMENT CLOSER TO HOME.
== END 2017-02-10 11:13 | disposition disaster alternative care site (69) | DRG 236 ==
LOC: GICU 16:15 → GPCU 16:15 → GICU 02-04 12:05 → GPCU 02-06 14:19
PROVIDERS: ADMIT Thoracic Surgery (Cardiothoracic Vascular Surgery)
PROC: 02100A9 Bypass Coronary Artery, One Artery from Left Internal Mammary with Autologous Arterial Tissue, Open Approach (ICD-10-PCS; principal; 2017-02-04)
PROC: 06BQ4ZZ Excision of Left Saphenous Vein, Percutaneous Endoscopic Approach (ICD-10-PCS; principal; 2017-02-04)
PROC: B24BZZ4 Ultrasonography of Heart with Aorta, Transesophageal (ICD-10-PCS; principal; 2017-02-04)
PROC: 5A1221Z Performance of Cardiac Output, Continuous (ICD-10-PCS; principal; 2017-02-04)
PROC: 03HY33Z Insertion of Infusion Device into Upper Artery, Percutaneous Approach (ICD-10-PCS; principal; 2017-02-04)
PROC: 02HV33Z Insertion of Infusion Device into Superior Vena Cava, Percutaneous Approach (ICD-10-PCS; principal; 2017-02-04)
PROC: 06BP4ZZ Excision of Right Saphenous Vein, Percutaneous Endoscopic Approach (ICD-10-PCS; principal; 2017-02-04)
PROC: 021309W Bypass Coronary Artery, Four or More Arteries from Aorta with Autologous Venous Tissue, Open Approach (ICD-10-PCS; principal; 2017-02-04)
DX: I21.4 Non-ST elevation (NSTEMI) myocardial infarction (principal); E66.01 Morbid (severe) obesity due to excess calories; N39.0 Urinary tract infection, site not specified; I25.10 Atherosclerotic heart disease of native coronary artery without angina pectoris; I10 Essential (primary) hypertension; E78.5 Hyperlipidemia, unspecified; E11.9 Type 2 diabetes mellitus without complications; Z68.38 Body mass index [BMI] 38.0-38.9, adult; G47.30 Sleep apnea, unspecified; K21.9 Gastro-esophageal reflux disease without esophagitis; F32.9 Major depressive disorder, single episode, unspecified; Z79.84 Long term (current) use of oral hypoglycemic drugs; H91.90 Unspecified hearing loss, unspecified ear; Z23 Encounter for immunization
CPT/HCPCS: C1769; J0282; J0690; J1644; J1650; J1940; J2150; J2250; J2270; J2405; J2440; J2720; J3370; J3475; J3480; J3490; J7030; J7040; J7050; J7060; J7121; P9045; P9047

== ENCOUNTER → 2017-02-23 | Outpatient (CLI) | payer BC, MEDICAID ==
[~2017-02-23] MED LIST: AMARYL4 MG PO; ASPIRIN EC81 MG PO; CELEBREX200 MG PO; COLACE100 MG PO; CORDARONE,PACE200 MG PO; COREG 3.1253.125 MG PO; DIOVAN160 MG PO; GLUCOPHAGE500 MG PO; HUMIBID LA (MU600 MG PO; K-TAB ER20 MEQ PO; LASIX40 MG PO; LEVAQUIN500 MG PO; LIPITOR40 MG PO; MIRALAX17 GM PO; NORCO 5-325 TA1 EACH PO; ULTRAM50 MG PO
[2017-02-23 14:14] LABS: BASOPHIL % 0.5 %; EOSINOPHIL # 0.2 K/uL (0.0-0.5); EOSINOPHIL % 1.8 %; HEMOGLOBIN 12.1 g/dL (12.0-17.0); IMMATURE GRANULOCYTE % 0.5 %; LYMPHOCYTE # 2.4 K/uL (0.8-4.0); LYMPHOCYTE % 28.6 %; MCV 84.2 fl (83.0-98.0); MONOCYTE # 0.5 K/uL (0.0-1.0); MONOCYTE % 5.7 %; MPV 9.2 fl (9.4-12.4); NEUTROPHIL # (ANC) 5.2 K/uL (1.4-9.0); NEUTROPHIL % 62.9 %; NRBC % 0 /100WBC (0-0.00); RDW-CV 12.6 % (11.9-14.6); WBC 8.3 K/uL (4.0-11.0)
[2017-02-23 14:17] LABS: HEMATOCRIT 36.8 % (37.0-53.0); MCH 27.7 pg (27.0-34.0); MCHC 32.9 gm/dL (32.0-36.5); PLATELET COUNT 454 K/uL (150-450); RBC 4.37 M/uL (4.00-6.00)
[2017-02-23 14:31] LABS: ALBUMIN 3.5 gm/dL (3.5-5.0); ALK PHOS 99 IU/L (33-138); ALT 20 IU/L (12-78); ANION GAP 10.3 (10.0-19.0); AST 13 IU/L (10-40); BLOOD UREA NITROGEN 15 mg/dL (6-24); CALCIUM 8.8 mg/dL (8.5-10.5); CHLORIDE 103 mMol/L (96-110); CO2 30 mMol/L (22-32); CREATININE 0.9 mg/dL (0.6-1.3); ESTIMATED GFR (MDRD EQUATION) > 60; POTASSIUM 4.3 mMol/L (3.7-5.1); SODIUM 139 mMol/L (135-145); TOTAL PROTEIN 8.6 g/dL (6.0-8.4)
[2017-02-23 14:32] LABS: TOTAL BILIRUBIN 0.7 mg/dL (0.0-1.5)
== END | disposition disaster alternative care site (69) ==
LOC: LNHI 14:08
PROVIDERS: Thoracic Surgery (Cardiothoracic Vascular Surgery)
DX: I25.10 Atherosclerotic heart disease of native coronary artery without angina pectoris (principal); R53.83 Other fatigue; I10 Essential (primary) hypertension